=== PATIENT | female | born 1940 | race Caucasian/White ===

== ENCOUNTER 2016-10-16 09:43 | Inpatient (IN) | payer MEDICARE, BC ==
--- NOTE | ~2016-10-16 | DS ---
Discharge Summary [facility] [address] [facility] [place]. [address] NAME: JAELYN ALCAZAR : 44 STATUS : DIS IN PAT#: [id number] AGE: 75 ADM/REG DATE : 10/16/16 MR#: [id number] REPORT SERV DATE: 10/20/16 DICTATED BY: JR. RYAN,JUDSON GRACE DATE: 10/19/16 REPORT STATUS : Draft TRANSCRIBED BY: GLENN DATE: 10/19/16 ADMISSION DATE: 10/16/2016 DISCHARGE DATE: 10/19/2016 ADDENDUM: HOSPITAL COURSE: The patient did not have a rehab facility procured and remained in the hospital overnight. Significant events include an episode of hypoglycemia. The patient also relates she does not have diabetes type 2, she has type 1 diabetes. She is on an insulin pump at home. We have modified her insulin regimen to give her 5 units of Lantus every morning with a level 1 sliding scale. Discharge followup may consider resuming her insulin pump while at rehab. GILLES/GLENN Judson Mae Jr, MD / [id number] CC: Judson Mae Jr, MD David Elias, M.D.
--- NOTE | ~2016-10-16 | CN ---
Consultation Report [facility] [address] [facility] [place]. [address] NAME: JAELYN ALCAZAR : 44 STATUS : ADM IN PAT#: [id number] AGE: 75 ADM/REG DATE : 10/16/16 MR#: [id number] REPORT SERV DATE: 10/17/16 DICTATED BY: ALEM ANTHONY DATE: 10/17/16 REPORT STATUS : Draft TRANSCRIBED BY: MODRadha DATE: 10/17/16 NEUROLOGY CONSULTATION DATE OF CONSULTATION: 10/17/2016 REASON FOR CONSULTATION: TIA. HOSPITALIST: Bulmaro Hastings MD HISTORY OF PRESENT ILLNESS: The patient is a 75-year-old female, who got up Monday morning to make coffee. She felt like her blood sugar was low because she was "shaky and unsteady on her feet." She went to refrigerator, got some juice, drank it, and drank coffee, her symptoms seemed to go away. Her symptoms started again Monday evening when she and her were getting a table out of the storage space to put in the house. Again her symptoms resolved fairly quickly. Monday morning, the patient got up and had the same sort of feeling except her speech was more slurred. She was imbalanced. She denied any weakness or numbness on one side of her body. She denied any visual changes or confusion. Her son was over at the house and he decided to bring her into the hospital for further evaluation and treatment. Upon arrival, it was found that the patient's blood sugars were within normal range but her blood pressure was mildly elevated. She was admitted to the hospital for further evaluation and treatment. PAST MEDICAL HISTORY: Diabetes mellitus type 2 (on insulin pump), carotid stenosis, hyperlipidemia, coronary artery disease, and hypothyroidism. PAST SURGICAL HISTORY: Coronary artery bypass grafting with coronary stent placement, carpal tunnel syndrome, and thyroid surgery. HOME MEDICATION LIST: Consists of aspirin 81 mg at bedtime, hard nails capsule, calcium with vitamin D, Plavix 75 mg at bedtime, vitamin B12 1000 mcg daily, Advil p.r.n., Humalog insulin sliding scale, Humalog insulin infusion pump, Imdur 15 mg twice a day, levothyroxine 137 mcg daily, a multivitamin daily, Nitrostat sublingual p.r.n., fish oil 2000 mg at bedtime, Protonix 40 mg daily p.r.n., Pravachol 40 mg at bedtime, prednisone forte 1 drop in the right eye at bedtime, Maxzide 75/50 mg a half a tablet daily. ALLERGIES: SULFA. SOCIAL HISTORY: The patient is . She has two sons. She is retired. She does not smoke, drink alcohol, or use illicits. FAMILY HISTORY: The patient's mother at the age of 83 from a stroke. Her father at the age of 79 from lung cancer. She has one sister who has breast cancer. REVIEW OF SYSTEMS: Consultation Report [id number] [place]. [address] NAME: JAELYN ALCAZAR : 44 STATUS : ADM IN [facility]#: [id number] AGE: 75 ADM/REG DATE : 10/16/16 MR#: [id number] REPORT SERV DATE: 10/17/16 DICTATED BY: ALEM ANTHONY DATE: 10/17/16 REPORT STATUS : Draft TRANSCRIBED BY: GLENN DATE: 10/17/16 For pertinent positives, please see the HPI. PHYSICAL EXAMINATION: VITAL SIGNS: The patient is a 75-year-old female, who stands 5 feet 7 inches tall and weighs 135 pounds. She is afebrile. Heart rate 78, respiratory rate 22, O2 saturations on room air 99%, blood pressure is 151/70. NEURO: The patient is alert. She is oriented x4. She is pleasant. Communicates appropriately. Left pupil is 4 mm and reactive. 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 EOMs are intact. She has ptosis of the right eye. Right facial droop. No reported sensory deficits on the face. Visual pickett are intact for the left eye. She can move all extremities x4. There is ataxia with finger-to- nose involving the right hand and [id number] involving the right leg. Upper extremity strength 5/5 on the left, 4/5 on the right. DTRs 1+ bilaterally. No reported sensory deficits. Lower extremity strength 4/5 on the left and a 3/5 on the right. DTRs 2+ bilaterally. Reported diminished sensation on the right leg when compared to the left. I did not get the patient up to ambulate. She is imbalanced. NECK: No carotid bruits JVD or thyromegaly. CHEST: Lung sounds clear. CARDIAC: Regular rate and rhythm. CBC normal. BMP normal except blood sugars are 197. Cholesterol values are normal. Troponins negative. UA negative for UTI. Echocardiogram, LVEF are 50-55% with no shunt. MRI of the brain shows a small infarct in the left vilma. MRA of the head and neck, no stenosis. NIH stroke scale is a 4. ASSESSMENT/PLAN: Acute stroke in the left vilma region. At this point, the patient's aspirin will be increased from 81 mg to 325 mg. Her Pravachol will be changed to Lipitor 80 mg at bedtime. PT/OT and Speech Therapy will be consulted for rehab. SUGGESTIONS: The patient was counseled on risk factor reduction and additional lab work will be drawn. Thank you again for including us in consultation. We will continue to follow with you. ROSANGELA/GLENN Alem Anthony, BLANCA- / [id number] CC: Bulmaro Hastings MD Consultation Report [address] [address] NAME: JAELYN ALCAZAR : 44 STATUS : ADM IN [facility]#: [id number] AGE: 75 ADM/REG DATE : 10/16/16 MR#: [id number] REPORT SERV DATE: 10/17/16 DICTATED BY: ALEM ANTHONY DATE: 10/17/16 REPORT STATUS : Draft TRANSCRIBED BY: GLENN DATE: 10/17/16 Leander Lujan M.D.
--- NOTE | ~2016-10-16 | HP ---
History And Physical [address] [place]. [address] NAME: JAELYN ALCAZAR : 44 STATUS : ADM IN [facility]#: [id number] AGE: 75 ADM/REG DATE : 10/16/16 MR#: [id number] REPORT SERV DATE: 10/16/16 DICTATED BY: KENY RODRIGUEZ DATE: 10/16/16 REPORT STATUS : Draft TRANSCRIBED BY: MODL DATE: 10/16/16 DATE OF ADMISSION: 10/16/2016 REASON FOR ADMISSION: Concern for TIA. PRIMARY CARE PHYSICIAN: Dr. Lujan. CT SURGEON: Dr. Winkler. PAPETERIE TABLE ASSEMBLER: Dr. Mills. CHIEF COMPLAINT: "I have been feeling unsteady on my feet and have some slurred speech since yesterday." HISTORY OF PRESENT ILLNESS: A 75-year-old white female with a history of insulin-dependent diabetes, on an insulin pump; carotid stenosis; hyperlipidemia; coronary artery disease, status post CABG, presented to [facility] ER today with complaints of feeling unsteady on her feet and some slurred speech. The patient stated that her symptoms initially occurred yesterday morning after she woke up. She said that she was having some difficulty doing her daily activities along with trying to ambulate and she felt that she was hypoglycemic, so she had checked her sugar, and it was fine. Her symptoms had gone away, but then came back on Monday evening feeling disoriented, difficulty with ambulation, and some slurred speech. Once again, her symptoms went away and then they came back this morning, which prompted her to come to the ER for further evaluation. In the ER, she had a CT scan of her head done without any contrast, which did not show any signs of a stroke. She is accompanied by her two sons and her , who noticed that she was having some difficulty with her speech along with some disorientation. She states that all of her symptoms are gone, but the family says that she still has some mild slurred speech. The patient denies dysuria, chest pain, shortness of breath, diarrhea. REVIEW OF SYSTEMS: As per HPI. Otherwise, 10-point systems reviewed and are negative. PAST MEDICAL HISTORY: Palpitations, coronary artery disease status post CABG, carotid stenosis, hyperlipidemia, insulin-dependent diabetes, hypothyroidism. PAST SURGICAL HISTORY: She had CAB[place] [address] Winkler. She had PCI by Dr. Chaudhry in 2012 and drug-eluting stent in 2012. She had carpal tunnel surgery and thyroid surgery. SOCIAL HISTORY: She denies any smoking, illegal drugs, or alcohol. She is . She has two sons. FAMILY HISTORY: Denies any stroke. ALLERGIES: NO KNOWN ALLERGIES. History And Physical [address] [address] NAME: JAELYN ALCAZAR : 44 STATUS : ADM IN PAT#: [id number] AGE: 75 ADM/REG DATE : 10/16/16 MR#: [id number] REPORT SERV DATE: 10/16/16 DICTATED BY: KENY RODRIGUEZ DATE: 10/16/16 REPORT STATUS : Draft TRANSCRIBED BY: GLENN DATE: 10/16/16 MEDICATIONS: Include aspirin 81 mg once a day, biotin, calcium, Plavix 75 mg at bedtime, vitamin B12, Advil p.r.n., insulin pump, isosorbide 15 mg twice a day, Synthroid 137 mcg daily, multivitamin, Nitrostat p.r.n., fish oil daily, Protonix 40 mg p.r.n., Pravachol daily, Pred Forte eye drop in the right eye, Maxzide 50 mg once a day. PHYSICAL EXAMINATION: VITAL SIGNS: Blood pressure is 140/77, temp is 97.4, saturating 100% on room air, pulse 64. GENERAL: She is in no acute distress. Alert and oriented x3. HEENT: Normocephalic, atraumatic head. Extraocular muscles intact. Oropharynx clear. NECK: Supple. No JVD. CARDIAC: Regular rhythm. No murmurs, rubs, or gallops. PULMONARY: Clear to auscultation bilaterally. ABDOMEN: Soft, nontender, nondistended. Positive bowel sounds. EXTREMITIES: Show no clubbing, cyanosis, or edema. PSYCHIATRIC: The patient is cooperative. Mood is appropriate. SKIN: Warm and dry. NEUROLOGICAL: She has some mild slurred speech. A very mild right-sided facial droop. LABORATORY DATA AND IMAGING: EKG shows a normal sinus rhythm. Chest x-ray shows no acute process. CBC shows white blood cell count of 4.4. CMP, albumin 3.4, troponin is negative. CT scan of the brain without contrast shows no acute pathology. Moderate-severity central pattern of diffuse cerebral involutional changes versus possibility of communicating hydrocephalus or normal-pressure hydrocephalus. UA shows trace leukocyte esterase. IMPRESSION: 1. Transient ischemic attack versus NPH. 2. Insulin-dependent diabetes. 3. Hyperlipidemia. 4. Coronary artery disease, status post CABG. PLAN: Do an MRI stroke protocol. We will resume her Plavix. Increase her aspirin to 325 mg per day. Obtain a fasting lipid panel. Check an echocardiogram to see her insulin pump and start her on Levemir. Consult Neurology. Dr. Mae will assume care of this patient on Monday. GEORGIA/GLENN Keny Rodriguez MD / [id number] CC: MD Judson Zavaleta M.D., Ph.D, F.A.C.C. History And Physical [address] [address] NAME: JAELYN ALCAZAR : 44 STATUS : ADM IN PAT#: [id number] AGE: 75 ADM/REG DATE : 10/16/16 MR#: [id number] REPORT SERV DATE: 10/16/16 DICTATED BY: KENY RODRIGUEZ DATE: 10/16/16 REPORT STATUS : Draft TRANSCRIBED BY: GLENN DATE: 10/16/16 Elie Winkler M.D.
--- NOTE | ~2016-10-16 | DS ---
Discharge Summary [facility] [address] [place]. [address] NAME: JAELYN ALCAZAR : 44 STATUS : ADM IN PAT#: [id number] AGE: 75 ADM/REG DATE : 10/16/16 MR#: [id number] REPORT SERV DATE: 10/19/16 DICTATED BY: JR. MAE WILLIAM JOHN DATE: 10/18/16 REPORT STATUS : Draft TRANSCRIBED BY: MODL DATE: 10/18/16 ADMISSION DATE: 10/16/2016 DISCHARGE DATE: 10/18/2016 DISCHARGE DIAGNOSES: Include: 1. Left pontine acute brain infarct/stroke with minimal right-sided weakness and gait unsteadiness. 2. Diabetes mellitus type 2 with long-term insulin use. 3. Hyperlipidemia. 4. Coronary artery disease with a history of bypass grafting. 5. Hypothyroidism. OPERATIONS/PROCEDURES AND TREATMENTS: Include: 1. CT of the brain done 10/16/2016, which showed no acute intracranial pathology. There was moderately severe central pattern of diffuse cerebral involutional change versus possibility of communicating hydrocephalus or normal pressure hydrocephalus with right phthisis bulbi pattern. 2. Chest x-ray done 10/16/2016, which showed no acute cardiopulmonary findings with stable bypass, bilateral breast implants. 3. MRI of the brain done 10/17/2016, which showed small acute infarct in the left vilma with atrophy and minimal microvascular white matter ischemic change. 4. MRA of the neck done 10/17/2016, which was unremarkable. 5. MRA of the head done 10/17/2016, which was unremarkable. 6. Echocardiogram which showed left ventricular systolic function intact with an ejection fraction of 50%, unchanged from 2014 with left ventricular diastolic dysfunction. The right ventricular systolic function was intact. There was no significant valvular dysfunction. CONSULTING PHYSICIAN: Dr. Joel Medley of Neurology. DISCHARGE MEDICATIONS: Include: 1. Aspirin 81 mg orally daily. 2. Lipitor 80 mg orally daily. 3. Plavix 75 mg daily. 4. Cyanocobalamin 1000 mcg orally daily. 5. Calcium plus D 600 mg orally daily. 6. Imdur 15 mg twice a day. 7. Synthroid 137 mcg orally daily. 8. Multivitamin one tablet orally daily. 9. [place]-3 fatty acid two capsules at bedtime. 10.Pred-Forte 1% to one drop to the right eye at bedtime. 11.Maxzide 25 mg orally daily. 12.Levemir 10 units at bedtime. 13.Protonix 40 mg daily. 14.Biotin one tablet daily. 15.Nitroglycerin 0.4 mg sublingually as needed. Discharge Summary [place] [address] [place]. [address] NAME: JAELYN ALCAZAR : 44 STATUS : ADM IN PAT#: [id number] AGE: 75 ADM/REG DATE : 10/16/16 MR#: [id number] REPORT SERV DATE: 10/19/16 DICTATED BY: JR. MAE WILLIAM JOHN DATE: 10/18/16 REPORT STATUS : Draft TRANSCRIBED BY: GLENN DATE: 10/18/16 HOSPITAL COURSE: The patient is a 75-year-old white female with history of diabetes mellitus, on an insulin pump at home, also with a history of carotid stenosis, hyperlipidemia, and coronary artery disease with a history of bypass grafting, who presented to the emergency room on 10/16/2016 with feeling of unsteady gait and slurred speech. This occurred the morning when she woke up, she did her daily activities, tried to ambulate, and felt like her blood sugar was low, but she checked it and it was fine. She felt disoriented with difficulty ambulating and slurred speech and came to the emergency room. In the emergency room, workup was unremarkable for acute stroke on CT. The patient was admitted to the Clinical Decision Unit, where she had an MRI of the brain, showing a left pontine small infarct. The patient was already on aspirin and Plavix. Her statin medications were changed to Lipitor 80 mg daily. She was seen by Neurology. The patient will have physical therapy and occupational therapy evaluations followed by rehabilitation placement. We are currently attempting rehabilitation placement. The patient will be discharged to rehab when bed is available. Regarding diabetes mellitus type 2, the patient's insulin pump was disconnected. She was placed on basal bolus insulin with fair control. This will need to be refined further in rehabilitation. The remainder of the patient's health problems were unremarkable and were not addressed during this hospital stay. For discharge exam and laboratory, please see daily progress note. DISCHARGE DIET: Regular. ACTIVITY: As tolerated. This discharge took 38 minutes for patient encounter, coordination of care, and documentation. GILLES/GLENN Judson Mae Jr, MD / [id number] CC: Judson Mae Jr, MD David Elias, M.D.
[2016-10-16 09:18] LABS: BASOPHILS 0.5 %; BASOPHILS ABSOLUTE 0.02 10/3/uL (0.0-0.16); EOSINOPHILS 3.9 %; EOSINOPHILS ABSOLUTE 0.17 10/3/uL (0.0-0.53); ER CBC TAT 0 Hrs 07 Mins; HEMATOCRIT 38.2 % (36.0-48.0); HEMOGLOBIN 12.9 g/dL (12.0-16.0); LYMPHOCYTES 16.8 %; LYMPHOCYTES ABSOLUTE 0.74 10/3/uL (0.67-4.30); MEAN CORPUS HGB CONC 33.8 g/dL (32.0-36.0); MEAN CORPUSCULAR HEMOGLOB 29.2 pg (26.0-34.0); MEAN CORPUSCULAR VOLUME 86.4 fL (80-100); MONOCYTES 8.4 %; MONOCYTES ABSOLUTE 0.37 10/3/uL (0.21-1.20); NEUTROPHILS 70.4 %; NEUTROPHILS ABSOLUTE 3.11 10/3/uL (2.02-8.40); PLATELET COUNT 152 10/3/uL (150-400); RBC DISTRIBUTION WIDTH 13.2 % (12.0-16.0); RED CELL COUNT 4.42 10/6/uL (4.0-5.6); WHITE BLOOD CELLS 4.4 10/3/uL (4.5-10.5)
[2016-10-16 09:19] LABS: MANUAL DIFF NO %
[2016-10-16 09:31] LABS: PARTIAL THROMBO TIME 28.7 SEC (22.5-37.2); PROTIME (NOT ORD) 13.4 SEC (12.0-14.5)
[2016-10-16 09:36] LABS: A/G RATIO 1.3 (0.7-1.9); ALBUMIN 3.4 G/DL (3.5-5.0); ALKALINE PHOSPHATASE 96 U/L (45-117); CALCIUM, SERUM 8.5 MG/DL (8.5-10.4); CHLORIDE, SERUM 108 MMOL/L (96-112); CO2 (CARBON DIOXIDE) 25 MMOL/L (24-34); CREATININE 0.63 MG/DL (0.55-1.02); GFR AFRICAN AMERICAN 103 ML/MIN (>=60); GFR NON AFRICAN AMERICAN 89 ML/MIN (>=60); POTASSIUM, SERUM 4.8 MMOL/L (3.5-5.3); SGOT(AST) 27 U/L (5-40); SGPT(ALT) 43 U/L (5-65); SODIUM, SERUM 141 MMOL/L (135-148); TOTAL BILIRUBIN 0.4 MG/DL (0-1.2); TOTAL PROTEIN 6.1 G/DL (6.0-8.5); TROPONIN I <0.02 NG/ML (<0.05)
[2016-10-16 09:37] LABS: BUN (BLOOD UREA NITROGEN) 13 MG/DL (6-23); GLOBULIN 2.7 G/DL (2.5-4.1); GLUCOSE, SERUM 197 MG/DL (60-99)
[~2016-10-16 09:43] MED LIST: ASAB PO; CALTRA600D PO; FISH-EPA1000 MG PO; FOSAMAX70 MG PO; HARD NAILS PO; HUMAPUMP SC; IMDUR30 PO; LEVOTHYROXIN175 MCG PO; LOP25 PO; MELA3 PO; MOBIC15 MG PO; MULTIPLE VIT PO; NITROSTAT0.4 MG SL; PLAVIX PO; PRAVACHOL40 MG PO; TETRACYCLINE250 MG OR; TETRACYCLINE250 MG PO; VITAMIN B-121000 MC1 PO
[2016-10-16 11:22] LABS: ASCORBIC ACID (UR NOT ORDER) 40 (NEG); BILIRUBIN, URINE NEGATIVE (NEG); ER URINALYSIS TAT 0 Hrs 11 Mins; KETONE, URINE NEGATIVE (NEG); LEUKOCYTE ESTERASE(NOT OR TRACE (NEG); NITRITE (URINE) NEG (NEG); WBC (NOT ORDERED) (RFLEX) 1 (0-5)
[2016-10-16] MEDS ORDERED: PROTONIX PO (12:13)
[2016-10-16] MEDS ORDERED: MAXZIDE PO (12:13)
[2016-10-16] MEDS ORDERED: CALTRA600D PO (12:14)
[2016-10-16] MEDS ORDERED: ASAB PO (12:14)
[2016-10-16] MEDS ORDERED: HARD NAILS PO (12:14)
[2016-10-16] MEDS ORDERED: PLAVIX PO (12:15)
[2016-10-16] MEDS ORDERED: LEVOTHYROXIN137 MCG PO (12:15)
[2016-10-16] MEDS ORDERED: CYANO1000T PO (12:16)
[2016-10-16] MEDS ORDERED: HUMAPUMP SC (12:16)
[2016-10-16] MEDS ORDERED: IMDUR30 PO (12:16)
[2016-10-16] MEDS ORDERED: PREDFORTE OPH (12:17)
[2016-10-16] MEDS ORDERED: ADVIL PO (12:17)
[2016-10-16] MEDS ORDERED: MULTIVIT/MIN PO (12:17)
[2016-10-16] MEDS ORDERED: NITROSTAT0.4 MG SL (12:17)
[2016-10-16] MEDS ORDERED: PRAVACHOL40 MG PO (12:18)
[2016-10-16] MEDS ORDERED: FISH-EPA1000 MG PO (12:18)
[2016-10-17 03:50] LABS: CHOL/HDL RATIO(NOT ORDER) 1.6 (0-5); CHOLESTEROL 132 MG/DL (< 200); HDL CHOLESTEROL 85 MG/DL (> 49); LDL CHOLESTEROL 36 MG/DL (< 130); NON-HDL CHOLESTEROL 47 MG/DL (< 160); TRIGLYCERIDE 57 MG/DL (< 150)
[2016-10-17 17:09] LABS: FOLATE 29.3 NG/ML (>5.2)
[2016-10-18 04:38] LABS: BASOPHILS 0.4 %; BASOPHILS ABSOLUTE 0.02 10/3/uL (0.0-0.16); EOSINOPHILS 4.3 %; EOSINOPHILS ABSOLUTE 0.24 10/3/uL (0.0-0.53); HEMATOCRIT 36.2 % (36.0-48.0); HEMOGLOBIN 12.5 g/dL (12.0-16.0); IMMATURE GRANULOCYTES 0.2 %; IMMATURE GRANULOCYTES ABSOLUTE 0.01 10/3/uL (0.0-0.11); LYMPHOCYTES 19.1 %; LYMPHOCYTES ABSOLUTE 1.06 10/3/uL (0.67-4.30); MEAN CORPUS HGB CONC 34.5 g/dL (32.0-36.0); MEAN CORPUSCULAR HEMOGLOB 29.5 pg (26.0-34.0); MEAN CORPUSCULAR VOLUME 85.4 fL (80-100); MEAN PLATELET VOLUME 9.1 fL (9.2-13.0); MONOCYTES 7.7 %; MONOCYTES ABSOLUTE 0.43 10/3/uL (0.21-1.20); NEUTROPHILS 68.3 %; PLATELET COUNT 159 10/3/uL (150-400); RBC DISTRIBUTION WIDTH 13.4 % (12.0-16.0); RED CELL COUNT 4.24 10/6/uL (4.0-5.6); WHITE BLOOD CELLS 5.6 10/3/uL (4.5-10.5)
[2016-10-18 04:39] LABS: MANUAL DIFF NO %
[2016-10-18 04:49] LABS: CALCIUM, SERUM 9.2 MG/DL (8.5-10.4); CHLORIDE, SERUM 108 MMOL/L (96-112); CO2 (CARBON DIOXIDE) 25 MMOL/L (24-34); CREATININE 0.75 MG/DL (0.55-1.02); GFR AFRICAN AMERICAN 92 ML/MIN (>=60); GFR NON AFRICAN AMERICAN 79 ML/MIN (>=60); POTASSIUM, SERUM 4.7 MMOL/L (3.5-5.3); SODIUM, SERUM 142 MMOL/L (135-148)
[2016-10-18 04:54] LABS: BUN (BLOOD UREA NITROGEN) 24 MG/DL (6-23); GLUCOSE, SERUM 48 MG/DL (60-99)
== END 2016-10-19 12:24 | DRG 65 ==
LOC: ER 09:43 → CDU1 12:38 → CDU2 13:15
PROVIDERS: Hospitalist; Internal Medicine
DX: I63.8 Other cerebral infarction (principal); G81.91 Hemiplegia, unspecified affecting right dominant side; E10.649 Type 1 diabetes mellitus with hypoglycemia without coma; I25.10 Atherosclerotic heart disease of native coronary artery without angina pectoris; Z95.1 Presence of aortocoronary bypass graft; Z79.4 Long term (current) use of insulin; Z96.41 Presence of insulin pump (external) (internal); Z95.5 Presence of coronary angioplasty implant and graft; Z79.82 Long term (current) use of aspirin; Z79.02 Long term (current) use of antithrombotics/antiplatelets
CPT/HCPCS: 70450; 70544; 70548; 70551; 71010; 80048; 80053; 80061; 81001; 82306; 82607; 82746; 82962; 83036; 84484; 85025; 85610; 85730; 92522-GN; 92610-GN; 93005; 97161-GP; 99285; A9270-GY; A9577; C8929; G8978-CK-GP; G8979-CJ-GP; G8996-CI-GN; G8997-CI-GN; G8998-CI-GN; G8999-CJ-GN; G9158-CJ-GN; G9186-CJ-GN; Q9957